=== PATIENT | female | born 1965 | race Caucasian/White ===

== ENCOUNTER 2017-03-02 06:44 | Emergency (ER) | payer MEDICAID ==
[~2017-03-02] VITALS: Ht 167.6 cm; Wt 79.2 kg
[~2017-03-02 06:44] MED LIST: ATI1T PO; DICY10CA88 PO; HYDR-3972 PO; LACT1CAP26 PO; LAMO100T89 PO; LEVO500T89 PO; LISI-600 PO; METR500T4 PO; PANT-47 PO; PHE25R PR; PRED20TA PO; PROM25TA14 PO; RANI150T12 PO; SUCR1ORA PO
[2017-03-02] MEDS ORDERED: famotidine/PF 10 mg/ml inj IV ONE (07:45)
[2017-03-02] MEDS ORDERED: LORazepam 2 mg/ml vial IV ONE (07:45)
[2017-03-02] MEDS ORDERED: proCHLORperazine 10 MG/2 ml inj IV ONE (07:45)
[2017-03-02] MEDS ORDERED: normal saline 1000ML IV soln IVB ONE ×2 (07:45)
[2017-03-02 08:29] LABS: BASOPHILS % (AUTO) 0.2 % (0-1); EOSINOPHILS % (AUTO) 0.6 % (0-6); HEMATOCRIT 46.1 % (35.0-45.0); HEMOGLOBIN 15.5 g/dl (12.0-16.0); LYMPHOCYTES # (AUTO) 0.8 X10'3 (1.1-4.8); LYMPHOCYTES % (AUTO) 19.4 % (21-51); MEAN CORPUSCULAR HEMOGLOBIN 29.3 PG (27.0-31.0); MEAN CORPUSCULAR HGB CONC 33.6 % (33.0-36.5); MEAN PLATELET VOLUME 8.8 FL (7.4-10.4); MONOCYTES # (AUTO) 0.4 X10'3 (0-0.9); MONOCYTES % (AUTO) 9.5 % (2-12); NEUTROPHILS # (AUTO) 2.8 X10'3 (1.8-7.7); NEUTROPHILS % (AUTO) 70.3 % (42-75); PLATELET COUNT 201 X10'3 (140-440); RED CELL DISTRIBUTION WIDTH 13.8 % (11.5-14.5)
[2017-03-02 08:31] LABS: ALANINE AMINOTRANSFERASE 24 U/L (12-78); ALBUMIN 4.5 G/DL (3.4-5.0); ALBUMIN/GLOBULIN RATIO 1.2 (1.1-1.5); ALKALINE PHOSPHATASE 80 IU/L (46-116); ANION GAP 14 (8-16); ASPARTATE AMINO TRANSFERASE 15 U/L (10-37); BILIRUBIN,TOTAL 0.3 MG/DL (0.1-1.0); BLOOD UREA NITROGEN 13 MG/DL (7-18); BUN/CREATININE RATIO 15.1 (6.6-38.0); CALCIUM 9.1 MG/DL (8.5-10.1); CHLORIDE 100 MMOL/L (99-107); CREATININE 0.86 MG/DL (0.40-0.90); GLUCOSE 98 MG/DL (70-104); LIPASE 67 U/L (73-393); POTASSIUM 3.8 MMOL/L (3.5-5.1); SODIUM 139 MMOL/L (135-145); TOTAL CARBON DIOXIDE 24.6 MMOL/L (24-32); TOTAL PROTEIN 8.3 G/DL (6.4-8.2); eGFR 69 ML/MIN
[2017-03-02 09:53] LABS: CLARITY,URINE Clear (Clear); COLOR,URINE Yellow (Yellow); GLUCOSE, URINE Negative (Neg); KETONES,URINE 80 mg/dl (Neg); LEUKOCYTE ESTERASE ,URINE Negative (Neg); NITRITES, URINE Negative (Neg); OCCULT BLOOD,URINE Negative (Neg); PROTEIN,URINE Negative (Neg)
[2017-03-02 09:57] LABS: UA COLLECTION TYPE CLN CATCH MIDSTREAM
[2017-03-02 11:57] VITALS: BP 124/80
== END 2017-03-02 12:10 | disposition home or self-care (01) ==
LOC: ER 06:45
DX: R11.2 Nausea with vomiting, unspecified (principal); M79.1 Myalgia; I10 Essential (primary) hypertension; J45.909 Unspecified asthma, uncomplicated; E11.9 Type 2 diabetes mellitus without complications; G89.29 Other chronic pain; Z90.710 Acquired absence of both cervix and uterus; Z88.0 Allergy status to penicillin
CPT/HCPCS: 36415; 71046; 80053; 81003; 83605; 83690; 85025; 87040; 96361; 96374; 96375; 99285; J0780; J2060; J2270; J3490; J7030

== ENCOUNTER 2017-08-19 12:21 | Emergency (ER) | payer MEDICAID ==
[~2017-08-19] VITALS: Ht 167.6 cm; Wt 89.1 kg
[~2017-08-19 12:21] MED LIST changes: -RANI150T12 PO; +RANI150T44 PO
[2017-08-19 13:07] LABS: PARTIAL THROMBOPLASTIN TIME 28 SECONDS (22-32); PROTHROMBIN TIME 10.4 SECONDS (9.0-12.0)
[2017-08-19 13:11] LABS: ALANINE AMINOTRANSFERASE 26 U/L (12-78); ALBUMIN 4.5 G/DL (3.4-5.0); ALBUMIN/GLOBULIN RATIO 1.2 (1.1-1.5); ALKALINE PHOSPHATASE 98 IU/L (46-116); ANION GAP 13 (8-16); ASPARTATE AMINO TRANSFERASE 15 U/L (10-37); BILIRUBIN,TOTAL 0.5 MG/DL (0.1-1.0); BLOOD UREA NITROGEN 16 MG/DL (7-18); BUN/CREATININE RATIO 18.2 (6.6-38.0); CALCIUM 10.1 MG/DL (8.5-10.1); CHLORIDE 99 MMOL/L (99-107); CREATININE 0.88 MG/DL (0.40-0.90); GLUCOSE 143 MG/DL (70-104); POTASSIUM 3.9 MMOL/L (3.5-5.1); SODIUM 137 MMOL/L (135-145); TOTAL CARBON DIOXIDE 24.8 MMOL/L (24-32); TOTAL PROTEIN 8.2 G/DL (6.4-8.2); eGFR 67 ML/MIN
[2017-08-19 14:00] LABS: BASOPHILS % (AUTO) 0.2 % (0-1); EOSINOPHILS % (AUTO) 0.2 % (0-6); HEMATOCRIT 42.4 % (35.0-45.0); HEMOGLOBIN 14.6 g/dl (12.0-16.0); LYMPHOCYTES # (AUTO) 2.3 X10'3 (1.1-4.8); LYMPHOCYTES % (AUTO) 20.1 % (21-51); MEAN CORPUSCULAR HEMOGLOBIN 29.2 PG (27.0-31.0); MEAN CORPUSCULAR HGB CONC 34.6 % (33.0-36.5); MEAN CORPUSCULAR VOLUME 84.5 FL (78-98); MONOCYTES # (AUTO) 0.5 X10'3 (0-0.9); MONOCYTES % (AUTO) 4.3 % (2-12); NEUTROPHILS # (AUTO) 8.7 X10'3 (1.8-7.7); NEUTROPHILS % (AUTO) 75.2 % (42-75); PLATELET COUNT 334 X10'3 (140-440); RED BLOOD COUNT 5.02 X10'6 (4.20-5.60); RED CELL DISTRIBUTION WIDTH 13.8 % (11.5-14.5); WHITE BLOOD COUNT 11.5 X10'3 (4.5-11.0)
[2017-08-19 15:27] VITALS: BP 115/63
== END 2017-08-19 15:30 | disposition home or self-care (01) ==
LOC: ER 12:22
DX: H53.50 Unspecified color vision deficiencies (principal); I10 Essential (primary) hypertension; R00.2 Palpitations; J45.909 Unspecified asthma, uncomplicated; E11.9 Type 2 diabetes mellitus without complications; M79.7 Fibromyalgia; Z90.710 Acquired absence of both cervix and uterus; Z88.0 Allergy status to penicillin; Z88.8 Allergy status to other drugs, medicaments and biological substances; Z79.899 Other long term (current) drug therapy
CPT/HCPCS: 36415; 71045; 80053; 84484; 85025; 85610; 85730; 93005; 99285

== ENCOUNTER 2017-10-24 08:43 | Emergency (ER) | payer MEDICAID ==
[~2017-10-24] VITALS: Ht 571.8 cm; Wt 86.4 kg
[2017-10-24] MEDS ORDERED: methylPREDNISolone sod succ 125mg/2ml vial IV ONE (08:50)
[2017-10-24] MEDS ORDERED: famotidine/PF 10 mg/ml inj IV ONE (08:50)
[2017-10-24] MEDS ORDERED: normal saline 1000ML IV soln IVB ONE (08:50)
[2017-10-24] MEDS ORDERED: diphenhydrAMINE 50 mg/ml inj IV ONE (08:50)
[2017-10-24] MEDS ORDERED: epiNEPHrine 1 mg/ml inj SQ STA (09:07)
[2017-10-24] MEDS ORDERED: dexamethasone sod phosphate 10mg/ml inj PO STA (09:08)
[2017-10-24 09:22] LABS: BASOPHILS # (AUTO) 0.1 X10'3 (0-0.2); BASOPHILS % (AUTO) 0.6 % (0-1); EOSINOPHILS # (AUTO) 0.2 X10'3 (0-0.9); EOSINOPHILS % (AUTO) 2.2 % (0-6); HEMATOCRIT 40.5 % (35.0-45.0); HEMOGLOBIN 13.9 g/dl (12.0-16.0); LYMPHOCYTES # (AUTO) 2.2 X10'3 (1.1-4.8); LYMPHOCYTES % (AUTO) 23.9 % (21-51); MEAN CORPUSCULAR HEMOGLOBIN 29.9 PG (27.0-31.0); MEAN CORPUSCULAR HGB CONC 34.3 % (33.0-36.5); MEAN CORPUSCULAR VOLUME 87.4 FL (78-98); MEAN PLATELET VOLUME 8.3 FL (7.4-10.4); MONOCYTES # (AUTO) 0.4 X10'3 (0-0.9); MONOCYTES % (AUTO) 4.7 % (2-12); NEUTROPHILS # (AUTO) 6.4 X10'3 (1.8-7.7); NEUTROPHILS % (AUTO) 68.6 % (42-75); PLATELET COUNT 308 X10'3 (140-440); RED BLOOD COUNT 4.64 X10'6 (4.20-5.60); RED CELL DISTRIBUTION WIDTH 13.9 % (11.5-14.5); WHITE BLOOD COUNT 9.3 X10'3 (4.5-11.0)
[2017-10-24 09:40] LABS: ALANINE AMINOTRANSFERASE 19 U/L (12-78); ALBUMIN 3.9 G/DL (3.4-5.0); ALBUMIN/GLOBULIN RATIO 1.1 (1.1-1.5); ALKALINE PHOSPHATASE 80 IU/L (46-116); ANION GAP 11 (8-16); ASPARTATE AMINO TRANSFERASE 10 U/L (10-37); BILIRUBIN,TOTAL 0.3 MG/DL (0.1-1.0); BLOOD UREA NITROGEN 14 MG/DL (7-18); BUN/CREATININE RATIO 14.3 (6.6-38.0); CALCIUM 9.2 MG/DL (8.5-10.1); CHLORIDE 101 MMOL/L (99-107); CREATININE 0.98 MG/DL (0.40-0.90); GLUCOSE 135 MG/DL (70-104); POTASSIUM 4.1 MMOL/L (3.5-5.1); SODIUM 137 MMOL/L (135-145); TOTAL PROTEIN 7.4 G/DL (6.4-8.2); eGFR 59 ML/MIN
[2017-10-24] MEDS ORDERED: HYDROcodone/acetaminophen 10/325mg tab PO ONE (09:55)
[2017-10-24] MEDS ORDERED: IBUP-1984 PO (12:01)
[2017-10-24] MEDS ORDERED: proCHLORperazine 10 MG/2 ml inj IV PRN (12:05)
[2017-10-24] MEDS ORDERED: PRED10TA PO (13:14)
[2017-10-24] MEDS ORDERED: DIPH-423 PO (13:15)
[2017-10-24 13:31] VITALS: BP 125/79
[2017-10-24] MEDS ORDERED: famotidine 10mg tablet PO SCH (20:00)
== END 2017-10-24 13:32 | disposition home or self-care (01) ==
LOC: ER 08:46
DX: T63.441A Toxic effect of venom of bees, accidental (unintentional), initial encounter (principal); R06.00 Dyspnea, unspecified; I10 Essential (primary) hypertension; E11.9 Type 2 diabetes mellitus without complications; J45.909 Unspecified asthma, uncomplicated; G89.29 Other chronic pain; Z90.710 Acquired absence of both cervix and uterus; Z88.0 Allergy status to penicillin; Z88.8 Allergy status to other drugs, medicaments and biological substances; Z79.899 Other long term (current) drug therapy; Y92.89 Other specified places as the place of occurrence of the external cause
CPT/HCPCS: 36415; 80053; 85025; 96372; 96374; 96375; 99284; J0171; J0780; J1200; J2930; J3490; J7030; J1100

== ENCOUNTER 2017-11-15 08:24 | Outpatient (CLI) | payer MEDICAID ==
[~2017-11-15 08:24] MED LIST changes: +DIPH-423 PO; +IBUP-1984 PO; +PRED10TA PO
== END 2017-11-15 23:59 | disposition home or self-care (01) ==
LOC: RAD 08:24
DX: R56.9 Unspecified convulsions (principal); J45.909 Unspecified asthma, uncomplicated; Z90.710 Acquired absence of both cervix and uterus; Z85.038 Personal history of other malignant neoplasm of large intestine; Z87.891 Personal history of nicotine dependence
CPT/HCPCS: 95819

== ENCOUNTER 2018-01-10 18:24 | Emergency (ER) | payer MEDICAID ==
[~2018-01-10] VITALS: Ht 167.6 cm; Wt 86.0 kg
[~2018-01-10 18:24] MED LIST changes: -IBUP-1984 PO; +TRAM50TA2 PO
[2018-01-10] MEDS ORDERED: proCHLORperazine 10 MG/2 ml inj IV ONE (19:15)
[2018-01-10] MEDS ORDERED: acetaminophen 325mg tablet PO ONE (19:15)
[2018-01-10] MEDS ORDERED: normal saline 1000ml 1,000 ML IV ONE (19:15)
[2018-01-10] MEDS ORDERED: normal saline 1000ML IV soln IV ONE (19:25)
[2018-01-10] MEDS ORDERED: acetaminophen 325mg rectal suppository RC ONE (19:25)
[2018-01-10] MEDS ORDERED: LORazepam 2 mg/ml vial IV ONE (19:40)
[2018-01-10 19:47] LABS: BASOPHILS % (AUTO) 0 % (0-1); EOSINOPHILS # (AUTO) 0.1 X10'3 (0-0.9); HEMATOCRIT 41.8 % (35.0-45.0); HEMOGLOBIN 13.9 g/dl (12.0-16.0); LYMPHOCYTES # (AUTO) 0.6 X10'3 (1.1-4.8); LYMPHOCYTES % (AUTO) 7.2 % (21-51); MEAN CORPUSCULAR HEMOGLOBIN 28.7 PG (27.0-31.0); MEAN CORPUSCULAR HGB CONC 33.2 % (33.0-36.5); MEAN CORPUSCULAR VOLUME 86.5 FL (78-98); MEAN PLATELET VOLUME 8.7 FL (7.4-10.4); MONOCYTES # (AUTO) 0.6 X10'3 (0-0.9); MONOCYTES % (AUTO) 6.9 % (2-12); NEUTROPHILS # (AUTO) 7.1 X10'3 (1.8-7.7); NEUTROPHILS % (AUTO) 84.9 % (42-75); PLATELET COUNT 251 X10'3 (140-440); RED BLOOD COUNT 4.83 X10'6 (4.20-5.60); WHITE BLOOD COUNT 8.4 X10'3 (4.5-11.0)
[2018-01-10 20:03] LABS: ALANINE AMINOTRANSFERASE 20 U/L (12-78); ALBUMIN 3.9 G/DL (3.4-5.0); ALBUMIN/GLOBULIN RATIO 1.1 (1.1-1.5); ALKALINE PHOSPHATASE 78 IU/L (46-116); ANION GAP 10 (8-16); ASPARTATE AMINO TRANSFERASE 18 U/L (10-37); BILIRUBIN,TOTAL 0.3 MG/DL (0.1-1.0); BLOOD UREA NITROGEN 9 MG/DL (7-18); BUN/CREATININE RATIO 10.6 (6.6-38.0); CALCIUM 8.6 MG/DL (8.5-10.1); CHLORIDE 99 MMOL/L (99-107); CREATININE 0.85 MG/DL (0.40-0.90); GLUCOSE 117 MG/DL (70-104); POTASSIUM 3.6 MMOL/L (3.5-5.1); SODIUM 135 MMOL/L (135-145); TOTAL CARBON DIOXIDE 25.7 MMOL/L (24-32); TOTAL PROTEIN 7.3 G/DL (6.4-8.2); eGFR 70 ML/MIN
[2018-01-10 20:41] LABS: PARTIAL THROMBOPLASTIN TIME 34 SECONDS (22-32); PROTHROMBIN TIME 10.6 SECONDS (9.0-12.0)
[2018-01-10] MEDS ORDERED: acetaminophen 650mg rectal suppository RC ONE (21:00)
[2018-01-10 21:36] LABS: CLARITY,URINE CLEAR (Clear); COLOR,URINE YELLOW (Yellow); GLUCOSE, URINE NEGATIVE (Neg); KETONES,URINE 15 mg/dl (Neg); LEUKOCYTE ESTERASE ,URINE NEGATIVE (Neg); NITRITES, URINE NEGATIVE (Neg); OCCULT BLOOD,URINE MODERATE (Neg); PH,URINE 5.5 (4.8-8.0); PROTEIN,URINE NEGATIVE (Neg); UROBILINOGEN,URINE 0.2 E.U/dL (0.2-1.0)
[2018-01-10 21:46] LABS: UA COLLECTION TYPE CLN CATCH MIDSTREAM
[2018-01-10 21:47] LABS: BACTERIA,URINE FEW /HPF (Neg); SQUAMOUS EPITHELIAL CELL,UR FEW /LPF (FEW); WBC,URINE NONE SEEN /HPF (0-4)
[2018-01-10] MEDS ORDERED: PHE12.5T PO (21:52)
[2018-01-10 21:59] VITALS: BP 119/47
== END 2018-01-10 22:06 | disposition home or self-care (01) ==
LOC: ER 18:25
DX: B34.9 Viral infection, unspecified (principal); R19.7 Diarrhea, unspecified; R79.1 Abnormal coagulation profile; I10 Essential (primary) hypertension; E11.9 Type 2 diabetes mellitus without complications; J45.909 Unspecified asthma, uncomplicated; G89.29 Other chronic pain; G40.909 Epilepsy, unspecified, not intractable, without status epilepticus; Z88.0 Allergy status to penicillin; Z88.8 Allergy status to other drugs, medicaments and biological substances; Z79.899 Other long term (current) drug therapy; Z87.19 Personal history of other diseases of the digestive system; Z90.710 Acquired absence of both cervix and uterus
CPT/HCPCS: 36415; 71045; 80053; 81001; 83605; 84145; 85025; 85610; 85730; 87040; 93005; 96361; 96374; 96375; 99285; J0780; J2060; J7030

== ENCOUNTER 2018-01-20 11:30 | Emergency (ER) | payer MEDICAID ==
[~2018-01-20] VITALS: Ht 167.6 cm; Wt 86.8 kg
[~2018-01-20 11:30] MED LIST changes: +PHE12.5T PO
[2018-01-20] MEDS ORDERED: TRAM50TA2 PO (13:24)
[2018-01-20 13:32] VITALS: BP 160/93
== END 2018-01-20 13:33 | disposition home or self-care (01) ==
LOC: ER 11:31
DX: S62.234D Other nondisplaced fracture of base of first metacarpal bone, right hand, subsequent encounter for fracture with routine healing (principal); I10 Essential (primary) hypertension; E11.9 Type 2 diabetes mellitus without complications; J45.909 Unspecified asthma, uncomplicated; G89.29 Other chronic pain; Z88.0 Allergy status to penicillin; Z88.8 Allergy status to other drugs, medicaments and biological substances; Z79.899 Other long term (current) drug therapy; Z87.19 Personal history of other diseases of the digestive system; X58.XXXD Exposure to other specified factors, subsequent encounter
CPT/HCPCS: 73130; 99283

== ENCOUNTER 2018-02-12 09:28 | Outpatient (CLI) | payer MEDICAID ==
[2018-02-12 09:26] VITALS: BP 149/94
[~2018-02-12 09:28] MED LIST changes: +METR-211 PO; -METR500T4 PO
== END 2018-02-12 10:42 | disposition home or self-care (01) ==
LOC: ORTHO 09:28
PROVIDERS: ATTEND Nurse Practitioner Family
DX: S62.034A Nondisplaced fracture of proximal third of navicular [scaphoid] bone of right wrist, initial encounter for closed fracture (principal); S69.91XA Unspecified injury of right wrist, hand and finger(s), initial encounter; F17.210 Nicotine dependence, cigarettes, uncomplicated; I10 Essential (primary) hypertension; J45.909 Unspecified asthma, uncomplicated; Z72.89 Other problems related to lifestyle; Z88.0 Allergy status to penicillin; Z88.8 Allergy status to other drugs, medicaments and biological substances; Z79.899 Other long term (current) drug therapy; X58.XXXA Exposure to other specified factors, initial encounter; Y93.89 Activity, other specified; Y92.89 Other specified places as the place of occurrence of the external cause; Y99.8 Other external cause status
CPT/HCPCS: 73130; 99213; A4590

== ENCOUNTER 2018-03-05 09:41 | Outpatient (CLI) | payer MEDICAID ==
[2018-03-05 09:35] VITALS: BP 144/81
[~2018-03-05 09:41] MED LIST changes: +METR-159 PO; -METR-211 PO; -TRAM50TA2 PO
== END 2018-03-05 10:28 | disposition home or self-care (01) ==
LOC: ORTHO 09:41
PROVIDERS: ATTEND Nurse Practitioner Family
DX: S62.03 Fracture of proximal third of navicular [scaphoid] bone of wrist (principal); S69.81XD Other specified injuries of right wrist, hand and finger(s), subsequent encounter; I10 Essential (primary) hypertension; J45.909 Unspecified asthma, uncomplicated; Z98.890 Other specified postprocedural states; Z88.0 Allergy status to penicillin; Z88.8 Allergy status to other drugs, medicaments and biological substances; X58.XXXD Exposure to other specified factors, subsequent encounter
CPT/HCPCS: 73110; 99213; A4590

== ENCOUNTER 2018-03-31 14:02 | Outpatient (CLI) | payer MEDICAID ==
[2018-03-31 14:06] VITALS: BP 112/69
== END 2018-03-31 14:59 | disposition home or self-care (01) ==
LOC: ORTHO 14:02
PROVIDERS: ATTEND Nurse Practitioner Family
DX: S62.03 Fracture of proximal third of navicular [scaphoid] bone of wrist (principal); I10 Essential (primary) hypertension; J45.909 Unspecified asthma, uncomplicated; Z98.890 Other specified postprocedural states; Z88.0 Allergy status to penicillin; Z88.8 Allergy status to other drugs, medicaments and biological substances; X58.XXXD Exposure to other specified factors, subsequent encounter
CPT/HCPCS: 73110

== ENCOUNTER 2018-05-01 11:23 | Outpatient (CLI) | payer MEDICAID ==
[2018-05-01 11:23] VITALS: BP 116/74
== END 2018-05-01 11:59 | disposition home or self-care (01) ==
LOC: ORTHO 11:23
PROVIDERS: ATTEND Nurse Practitioner Family
DX: S69.91XD Unspecified injury of right wrist, hand and finger(s), subsequent encounter (principal); S62.001G Unspecified fracture of navicular [scaphoid] bone of right wrist, subsequent encounter for fracture with delayed healing; I10 Essential (primary) hypertension; J45.909 Unspecified asthma, uncomplicated; Z98.890 Other specified postprocedural states; Z88.0 Allergy status to penicillin; Z88.8 Allergy status to other drugs, medicaments and biological substances; X58.XXXD Exposure to other specified factors, subsequent encounter
CPT/HCPCS: 99213

== ENCOUNTER 2018-05-07 14:37 | Outpatient (CLI) | payer MEDICAID ==
[2018-05-07 14:33] VITALS: BP 116/78
== END 2018-05-07 14:38 | disposition home or self-care (01) ==
LOC: ORTHO 14:37
PROVIDERS: ATTEND Nurse Practitioner Family
DX: S69.81XD Other specified injuries of right wrist, hand and finger(s), subsequent encounter (principal); I10 Essential (primary) hypertension; J45.909 Unspecified asthma, uncomplicated; Z90.710 Acquired absence of both cervix and uterus; Z98.890 Other specified postprocedural states; Z88.0 Allergy status to penicillin; Z87.891 Personal history of nicotine dependence; Z72.89 Other problems related to lifestyle; X58.XXXD Exposure to other specified factors, subsequent encounter
CPT/HCPCS: 99213; A4590

== ENCOUNTER 2018-05-08 11:11 | Outpatient (CLI) | payer MEDICAID ==
[2018-05-08 11:43] VITALS: BP 126/91
== END 2018-05-08 11:46 | disposition home or self-care (01) ==
LOC: ORTHO 11:11
PROVIDERS: ATTEND Nurse Practitioner Family
DX: S69.81XD Other specified injuries of right wrist, hand and finger(s), subsequent encounter (principal); I10 Essential (primary) hypertension; J45.909 Unspecified asthma, uncomplicated; G40.89 Other seizures; Z88.0 Allergy status to penicillin; Z88.8 Allergy status to other drugs, medicaments and biological substances; X58.XXXD Exposure to other specified factors, subsequent encounter
CPT/HCPCS: 99213

== ENCOUNTER 2019-01-18 10:00 | Emergency (ER) | payer MEDICAID ==
[~2019-01-18] VITALS: Ht 165.1 cm; Wt 90.0 kg
[~2019-01-18 10:00] MED LIST changes: +LAMO100T PO; -LAMO100T89 PO; -PHE12.5T PO; +PROM12.512 PO; +RANI-648 PO; -RANI150T44 PO
[2019-01-18 10:03] VITALS: BP 159/67
[2019-01-18] MEDS ORDERED: proparacaine 0.5% ophthalmic drops 15ml EACHEYE ONE (10:35)
[2019-01-18] MEDS ORDERED: ERYT1OIN6 EACHEYE (11:19)
[2019-01-18] MEDS ORDERED: erythromycin ophthalmic ointment 1gm tube EACHEYE ONE (11:20)
== END 2019-01-18 11:46 | disposition home or self-care (01) ==
LOC: ER 10:00
DX: T59.891A Toxic effect of other specified gases, fumes and vapors, accidental (unintentional), initial encounter (principal); T26.91XA Corrosion of right eye and adnexa, part unspecified, initial encounter; T26.92XA Corrosion of left eye and adnexa, part unspecified, initial encounter; H40.053 Ocular hypertension, bilateral; H40.9 Unspecified glaucoma; I10 Essential (primary) hypertension; J45.909 Unspecified asthma, uncomplicated; E11.9 Type 2 diabetes mellitus without complications; G89.29 Other chronic pain; M79.7 Fibromyalgia; Z90.710 Acquired absence of both cervix and uterus; Z98.890 Other specified postprocedural states; Z88.0 Allergy status to penicillin; Z88.8 Allergy status to other drugs, medicaments and biological substances; Z79.899 Other long term (current) drug therapy; W40.8XXA Explosion of other specified explosive materials, initial encounter; Y93.89 Activity, other specified; Y92.89 Other specified places as the place of occurrence of the external cause; Y99.8 Other external cause status
CPT/HCPCS: 99284

== ENCOUNTER 2019-08-14 12:23 | Emergency (ER) | payer MEDICAID ==
[~2019-08-14] VITALS: Ht 165.1 cm; Wt 84.5 kg
[~2019-08-14 12:23] MED LIST changes: -SUCR1ORA PO; +SUCR1ORA15 PO
[2019-08-14] MEDS ORDERED: triamcinolone acetonide 40mg/ml inj IM ONE (13:25)
[2019-08-14 13:44] VITALS: BP 126/84
== END 2019-08-14 13:50 | disposition home or self-care (01) ==
LOC: ER 12:24
DX: T63.441A Toxic effect of venom of bees, accidental (unintentional), initial encounter (principal); I10 Essential (primary) hypertension; J45.909 Unspecified asthma, uncomplicated; E11.9 Type 2 diabetes mellitus without complications; G89.29 Other chronic pain; M79.7 Fibromyalgia; Z90.710 Acquired absence of both cervix and uterus; Z86.69 Personal history of other diseases of the nervous system and sense organs; Z98.890 Other specified postprocedural states; Z88.0 Allergy status to penicillin; Z88.1 Allergy status to other antibiotic agents; Z88.5 Allergy status to narcotic agent; Z79.899 Other long term (current) drug therapy; Y92.89 Other specified places as the place of occurrence of the external cause
CPT/HCPCS: 93005; 96372; 99283; J3301

== ENCOUNTER 2019-10-08 12:50 | Emergency (ER) | payer MEDICAID ==
[~2019-10-08] VITALS: Ht 167.6 cm; Wt 77.7 kg
[2019-10-08 12:59] VITALS: BP 136/87
[2019-10-08] MEDS ORDERED: CLIN300C70 PO (15:33)
== END 2019-10-08 15:53 | disposition home or self-care (01) ==
LOC: ER 12:50
DX: K04.7 Periapical abscess without sinus (principal); R50.9 Fever, unspecified; R11.0 Nausea; L03.211 Cellulitis of face; I10 Essential (primary) hypertension; J45.909 Unspecified asthma, uncomplicated; E11.9 Type 2 diabetes mellitus without complications; G89.29 Other chronic pain; Z86.69 Personal history of other diseases of the nervous system and sense organs; Z90.710 Acquired absence of both cervix and uterus; Z98.890 Other specified postprocedural states; Z88.0 Allergy status to penicillin; Z88.1 Allergy status to other antibiotic agents; Z88.8 Allergy status to other drugs, medicaments and biological substances; Z79.2 Long term (current) use of antibiotics; Z79.899 Other long term (current) drug therapy
CPT/HCPCS: 99283

== ENCOUNTER 2019-10-27 11:05 | Inpatient (IN) | payer MEDICAID ==
[~2019-10-27] VITALS: Ht 167.6 cm; Wt 76.8 kg
[2019-10-27 11:38] LABS: BASOPHILS # (AUTO) 0.1 X10'3 (0-0.2); BASOPHILS % (AUTO) 1.3 % (0-1); EOSINOPHILS # (AUTO) 0.1 X10'3 (0-0.9); EOSINOPHILS % (AUTO) 1.4 % (0-6); HEMATOCRIT 44.9 % (35.0-45.0); HEMOGLOBIN 14.9 g/dl (12.0-16.0); LYMPHOCYTES # (AUTO) 2.7 X10'3 (1.1-4.8); LYMPHOCYTES % (AUTO) 31.3 % (21-51); MEAN CORPUSCULAR HEMOGLOBIN 29.2 PG (27.0-31.0); MEAN CORPUSCULAR HGB CONC 33.2 g/dL (33.0-36.5); MEAN PLATELET VOLUME 9.4 FL (7.4-10.4); MONOCYTES # (AUTO) 0.5 X10'3 (0-0.9); MONOCYTES % (AUTO) 5.8 % (2-12); NEUTROPHILS # (AUTO) 5.1 X10'3 (1.8-7.7); NEUTROPHILS % (AUTO) 60.2 % (42-75); PLATELET COUNT 277 X10'3 (140-440); RED CELL DISTRIBUTION WIDTH 14.2 % (11.5-14.5); WHITE BLOOD COUNT 8.5 X10'3 (4.5-11.0)
[2019-10-27 11:55] LABS: ALANINE AMINOTRANSFERASE 18 U/L (12-78); ALBUMIN 4.2 G/DL (3.4-5.0); ALBUMIN/GLOBULIN RATIO 1.3 (1.1-1.5); ALKALINE PHOSPHATASE 71 IU/L (46-116); ANION GAP 7 (8-16); ASPARTATE AMINO TRANSFERASE 13 U/L (10-37); BILIRUBIN,TOTAL 0.3 MG/DL (0.1-1.0); BLOOD UREA NITROGEN 10 MG/DL (7-18); BUN/CREATININE RATIO 10.9 (6.6-38.0); CALCIUM 9.5 MG/DL (8.5-10.1); CHLORIDE 105 MMOL/L (99-107); CREATININE 0.92 MG/DL (0.40-0.90); GLUCOSE 129 MG/DL (70-104); SODIUM 140 MMOL/L (135-145); TOTAL CARBON DIOXIDE 27.7 MMOL/L (24-32); TOTAL PROTEIN 7.4 G/DL (6.4-8.2); eGFR 63 ML/MIN
--- NOTE | 2019-10-27 13:44 | NUR ---
Checked with patient who states chest pressure present 09/03 with radiation to right clavicle. Patient also states she is cold all of a sudden and is not able to take a large breath.
--- NOTE | 2019-10-27 13:51 | NUR ---
Report of new chest pain given to Dr. Saucedo. EKG ordered.
[2019-10-27] MEDS ORDERED: aspirin 81mg tab.chew PO ONE (13:55)
[2019-10-27] MEDS: nitroGLYCERIN 0.4mg SUBLingual tab SL PRN ×2 (14:03→17:23)
--- NOTE | 2019-10-27 14:04 | NUR ---
Patient given one dose of Nitro 0.4 mg vitals taken.
[2019-10-27] MEDS ORDERED: SIMV20TA PO (14:11)
[2019-10-27] MEDS ORDERED: TIMO5DRO32 LEFTEYE (14:11)
[2019-10-27] MEDS ORDERED: NETA2.5D3 EACHEYE (14:11)
[2019-10-27] MEDS ORDERED: PROM25TA14 PO (14:11)
[2019-10-27] MEDS ORDERED: LISI-600 PO (14:11)
[2019-10-27] MEDS ORDERED: OMEP-50 PO (14:11)
[2019-10-27] MEDS ORDERED: TRAZ-251 PO (14:11)
[2019-10-27] MEDS ORDERED: DORZ10DR2 RIGHTEYE (14:11)
[2019-10-27] MEDS ORDERED: LAMO100T65 PO (14:11)
[2019-10-27] MEDS ORDERED: LAMO200T10 PO (14:12)
--- NOTE | 2019-10-27 14:14 | NUR ---
Patient recieved second dose of Nitro 0.4 mg. Patient vitals 77 pulse, 95 % SpO2, 24 respirations, bp 126/81. Patinet is A&Ox4, pink warm and dry, good vitals, talking normally, states painis 5/10 chest pressure, non radiating.
--- NOTE | 2019-10-27 14:20 | NUR ---
Patient recieved third dose of Nitro 0.4 mg and states relief from chest tightness, visibly more relaxed, easier breathing. Vitals stabel, pink warm and dry, A&x4. chest pressure is 3/10 with no sob or radiating.
--- NOTE | 2019-10-27 14:25 | NUR ---
Note brody in ED - 10/27/19 at 1508 by SIMON Patient recieved third dose of Nitro 0.4mg states chest pressure is 2/10 with slight restriction with breathing. Patient is pink warm and dry with no obvious signs of distress.
[2019-10-27] MEDS ORDERED: proMETHazine 25mg tablet PO PRN (14:45)
[2019-10-27] MEDS ORDERED: aminophylline 250mg/10ml inj. IV PRN (14:50)
[2019-10-27] MEDS ORDERED: HYDROcodone/acetaminophen 10/325mg tab PO PRN (14:50)
[2019-10-27] MEDS ORDERED: bisacodyl 10mg suppository rectal RC PRN (14:50)
[2019-10-27] MEDS ORDERED: magnesium hydroxide 30ml (MOM) UD suspension PO PRN (14:50)
[2019-10-27] MEDS ORDERED: regadenoson 0.4mg/5ml syringe IV PRN (14:50)
[2019-10-27] MEDS ORDERED: diphenhydrAMINE 25mg capsule PO PRN (14:50)
[2019-10-27] MEDS ORDERED: metoprolol tartrate 1mg/ml inj IV PRN (14:50)
[2019-10-27] MEDS ORDERED: acetaminophen 325mg tablet PO PRN ×2 (14:50)
[2019-10-27] MEDS ORDERED: potassium CL 10mEq/100ml bag 100 ML IV PRN ×2 (14:50)
[2019-10-27] MEDS ORDERED: magnesium 2GM in 50ml NS 50 ML IV PRN (14:50)
[2019-10-27] MEDS ORDERED: HYDROcodone/acetaminophen 5mg/325mg tablet PO PRN (14:50)
[2019-10-27] MEDS ORDERED: magnesium 4gm in 100ml NS 100 ML IV PRN (14:50)
[2019-10-27] MEDS ORDERED: mag hydrox/Alum hydrox/simeth 30ml oral suspension PO PRN (14:50)
[2019-10-27] MEDS ORDERED: magnesium Cl slow-release 64mg tablet PO PRN (14:50)
[2019-10-27] MEDS ORDERED: nitroGLYCERIN 0.4mg SUBLingual tab SL PRN (14:50)
[2019-10-27] MEDS ORDERED: morphine 2 MG/ML inj. syringe IV PRN ×2 (14:50)
[2019-10-27] MEDS ORDERED: potassium Cl 20 mEq SR tablet PO PRN ×2 (14:50)
[2019-10-27] MEDS ORDERED: acetaminophen 650mg rectal suppository RC PRN (14:50)
[2019-10-27] MEDS ORDERED: ondansetron/PF 4mg/2ml inj IV PRN (14:50)
[2019-10-27 15:04] LABS: CLARITY,URINE SLIGHTLY CLOUDY (Clear); COLOR,URINE YELLOW (Yellow); GLUCOSE, URINE NEGATIVE (Neg); KETONES,URINE NEGATIVE (Neg); LEUKOCYTE ESTERASE ,URINE NEGATIVE (Neg); NITRITES, URINE NEGATIVE (Neg); OCCULT BLOOD,URINE TRACE-INTACT (Neg); PH,URINE 5.5 (4.8-8.0); PROTEIN,URINE NEGATIVE (Neg); UROBILINOGEN,URINE 0.2 E.U/dL (0.2-1.0)
[2019-10-27 15:05] LABS: UA COLLECTION TYPE CLN CATCH MIDSTREAM
--- NOTE | 2019-10-27 15:08 | NUR ---
Patient states pain in chest has increased to 5/10 with some shortness of breath. One dose of 0.4mg Nitro given to patient with stable vitals, A&Ox4, pink warm and dry.
[2019-10-27] MEDS: normal saline 1000ml 1,000 ML IV SCH (15:13)
[2019-10-27 15:15] LABS: SQUAMOUS EPITHELIAL CELL,UR FEW /LPF (FEW)
--- NOTE | 2019-10-27 15:15 | NUR ---
After Nitro vitals stable, patient pink warm and dry A&Ox4
[2019-10-27 15:16] LABS: BACTERIA,URINE 1+ /HPF (Neg); RBC,URINE 0-2 /HPF (0-2); WBC,URINE 0-4 /HPF (0-4)
[2019-10-27 17:09] LABS: HEMOGLOBIN A1C 6.1 % (4.5-6.2)
--- NOTE | 2019-10-27 17:29 | NUR ---
report given to Marina RODRIGEZ
--- NOTE | 2019-10-27 17:40 | NUR ---
Patient recieved 2 doses of Nitro 0.4mg with relief from chest pain from 6 down to 1 in pain and relief from SOB. Patient is pink warm and dry, A&Ox4, in no obvious distress.
[2019-10-27 18:00] VITALS: BP 118/69
--- NOTE | 2019-10-27 18:00 | NUR ---
Patient in room MED 314. I have received report from Nanette RN and had the opportunity to ask questions and assume patient care.
[2019-10-27] MEDS: dorzolamide 2% ophthalmic drops 10ml RIGHTEYE SCH (20:00)
[2019-10-27] MEDS: K and/or MAG REPLACEMENT MC SCH (20:00)
[2019-10-27] MEDS ORDERED: traZODone 50mg tablet PO SCH (21:00)
[2019-10-27] MEDS ORDERED: EYE DRP EACHEYE SCH (21:00)
[2019-10-27] MEDS ORDERED: atorvastatin 10mg tablet PO SCH (21:00)
[2019-10-27] MEDS ORDERED: ROCKLATAN EACHEYE SCH (21:00)
[2019-10-27] MEDS: lamoTRIgine 100mg tablet PO SCH (21:50)
[2019-10-27] MEDS: timolol 0.5% ophthalmic solution 5ml bottle LEFTEYE SCH (21:51)
[2019-10-27] MEDS: heparin, porcine 5000 units/ml vial SQ SCH (21:54)
[2019-10-27 22:00] VITALS: BP_SYST 138; BP_SYST 140; BP_DIAS 82; BP_DIAS 84
[2019-10-28] VITALS (19 sets, daily range): BP systolic 120–196; BP diastolic 72–122
[2019-10-28] MEDS: normal saline 1000ml 1,000 ML IV SCH (04:08)
[2019-10-28 06:00] LABS: ALANINE AMINOTRANSFERASE 16 U/L (12-78); ALBUMIN 3.2 G/DL (3.4-5.0); ALBUMIN/GLOBULIN RATIO 1.1 (1.1-1.5); ALKALINE PHOSPHATASE 53 IU/L (46-116); ANION GAP 8 (8-16); ASPARTATE AMINO TRANSFERASE 11 U/L (10-37); BILIRUBIN,TOTAL 0.4 MG/DL (0.1-1.0); BLOOD UREA NITROGEN 10 MG/DL (7-18); BUN/CREATININE RATIO 13.3 (6.6-38.0); CALCIUM 8.7 MG/DL (8.5-10.1); CHLORIDE 110 MMOL/L (99-107); CHOL/HDL RATIO 2.8 (0.00-4.99); CHOLESTEROL 135 MG/DL (0-200); CREATININE 0.75 MG/DL (0.40-0.90); GLUCOSE 93 MG/DL (70-104); HDL CHOLESTEROL 49 MG/DL (35-60); LDL CHOLESTEROL 69 MG/DL (50-100); MAGNESIUM 1.9 MG/DL (1.5-2.4); PHOSPHORUS 3.9 MG/DL (2.3-4.5); POTASSIUM 4.1 MMOL/L (3.5-5.1); SODIUM 144 MMOL/L (135-145); TOTAL CARBON DIOXIDE 25.7 MMOL/L (24-32); TRIGLYCERIDES 81 MG/DL (20-135); eGFR 80 ML/MIN
--- NOTE | 2019-10-28 06:00 | NUR ---
Patient in room MED 314. I have received report from Ivette RN & Devon RN and had the opportunity to ask questions and assume patient care.
[2019-10-28 06:07] LABS: BASOPHILS # (AUTO) 0.1 X10'3 (0-0.2); BASOPHILS % (AUTO) 0.9 % (0-1); EOSINOPHILS # (AUTO) 0.1 X10'3 (0-0.9); EOSINOPHILS % (AUTO) 1.9 % (0-6); HEMATOCRIT 40.8 % (35.0-45.0); HEMOGLOBIN 13.3 g/dl (12.0-16.0); LYMPHOCYTES # (AUTO) 2.3 X10'3 (1.1-4.8); LYMPHOCYTES % (AUTO) 37.6 % (21-51); MEAN CORPUSCULAR HEMOGLOBIN 28.6 PG (27.0-31.0); MEAN CORPUSCULAR HGB CONC 32.7 g/dL (33.0-36.5); MEAN CORPUSCULAR VOLUME 87.6 FL (78-98); MONOCYTES # (AUTO) 0.4 X10'3 (0-0.9); MONOCYTES % (AUTO) 5.7 % (2-12); NEUTROPHILS # (AUTO) 3.3 X10'3 (1.8-7.7); NEUTROPHILS % (AUTO) 53.9 % (42-75); PLATELET COUNT 246 X10'3 (140-440); RED BLOOD COUNT 4.66 X10'6 (4.20-5.60); RED CELL DISTRIBUTION WIDTH 14.7 % (11.5-14.5); WHITE BLOOD COUNT 6.2 X10'3 (4.5-11.0)
--- NOTE | 2019-10-28 06:19 | NUR ---
Problems reprioritized. Patient report given, questions answered & plan of care reviewed with LIZZETH RODRIGEZ.
--- NOTE | 2019-10-28 06:19 | NUR ---
Orientee documentation: I have reviewed and agree with all interventions, assessments performed and documented by Ivette RODRIGEZ .
[2019-10-28] MEDS ORDERED: pantoprazole 40mg Tablet.DR PO PRN (07:30)
[2019-10-28] MEDS: K and/or MAG REPLACEMENT MC SCH (08:00)
[2019-10-28] MEDS ORDERED: lisinopril 20mg tablet PO SCH (08:00)
[2019-10-28] MEDS: timolol 0.5% ophthalmic solution 5ml bottle LEFTEYE SCH (08:04)
[2019-10-28] MEDS: lamoTRIgine 100mg tablet PO SCH (08:05)
[2019-10-28] MEDS: dorzolamide 2% ophthalmic drops 10ml RIGHTEYE SCH (08:05)
[2019-10-28] MEDS: heparin, porcine 5000 units/ml vial SQ SCH (08:08)
--- NOTE | 2019-10-28 14:44 | NUR ---
PAGER ID: [phone] MESSAGE: [phone] - FYI FUNMI RESULTED. THANKS! LIZZETH VALENCIAE [id number]
[2019-10-28] MEDS ORDERED: ASPI-611 PO (15:18)
--- NOTE | 2019-10-28 16:42 | NUR ---
Patient stable for discharge per MD orders. Rx e-transmitted to [facility] on . All discharge instructions reviewed and understood, all questions answered. PIV discontinued, cannula intact. Clean, dry dressing in place. Bedside buzzle buffer discontinued. All personal belongings collected and sent with patient. RN wheeled patient to private vehicle at 1641 to be transported home by family.
== END 2019-10-28 16:40 | disposition home or self-care (01) | DRG 198 ==
LOC: ER 11:06 → ED HOLD 14:48 → MED 3N 17:58
PROVIDERS: ADMIT Family Medicine; ATTEND Family Medicine
PROC: 4A02XM4 Measurement of Cardiac Total Activity, External Approach (ICD-10-PCS; principal; 2019-10-28)
PROC: 3E033HZ Introduction of Radioactive Substance into Peripheral Vein, Percutaneous Approach (ICD-10-PCS; 2019-10-28)
DX: I24.9 Acute ischemic heart disease, unspecified (principal); E11.9 Type 2 diabetes mellitus without complications; E78.00 Pure hypercholesterolemia, unspecified; F43.10 Post-traumatic stress disorder, unspecified; G40.909 Epilepsy, unspecified, not intractable, without status epilepticus; G47.00 Insomnia, unspecified; H40.9 Unspecified glaucoma; H54.8 Legal blindness, as defined in USA; I10 Essential (primary) hypertension; I48.0 Paroxysmal atrial fibrillation; J45.909 Unspecified asthma, uncomplicated; M85.80 Other specified disorders of bone density and structure, unspecified site; K21.9 Gastro-esophageal reflux disease without esophagitis; K50.90 Crohn's disease, unspecified, without complications; G89.29 Other chronic pain; Z86.73 Personal history of transient ischemic attack (TIA), and cerebral infarction without residual deficits; Z83.3 Family history of diabetes mellitus; Z87.19 Personal history of other diseases of the digestive system; Z87.891 Personal history of nicotine dependence; Z88.8 Allergy status to other drugs, medicaments and biological substances; Z90.710 Acquired absence of both cervix and uterus; Z98.1 Arthrodesis status; Z82.49 Family history of ischemic heart disease and other diseases of the circulatory system; Z80.0 Family history of malignant neoplasm of digestive organs; Z79.899 Other long term (current) drug therapy
CPT/HCPCS: 36415; 71045; 78452; 80053; 80061; 81001; 83036; 83735; 83880; 84100; 84484; 85025; 87081; 93005; 93017; 93306; 99285; A9500; G0378; J1644; J2270; J2785; J3490; J7030; Q0169

== ENCOUNTER 2020-08-04 12:32 | Outpatient (CLI) | payer MEDICAID ==
[~2020-08-04 12:32] MED LIST changes: -ATI1T PO; -DICY10CA88 PO; -DIPH-423 PO; +DORZ10DR2 RIGHTEYE; -HYDR-3972 PO; -LACT1CAP26 PO; -LAMO100T PO; +LAMO200T10 PO; -LEVO500T89 PO; -LISI-600 PO; +LISI20TA28 PO; -METR-159 PO; +NETA2.5D3 EACHEYE; +OMEP-50 PO; -PANT-47 PO; -PHE25R PR; -PRED10TA PO; -PRED20TA PO; -PROM12.512 PO; -RANI-648 PO; +SIMV20TA PO; -SUCR1ORA15 PO; +TIMO5DRO32 LEFTEYE; +TRAZ-251 PO
== END 2020-08-04 23:59 | disposition home or self-care (01) ==
LOC: CARD DIAG 12:32
DX: I08.0 Rheumatic disorders of both mitral and aortic valves (principal); I48.91 Unspecified atrial fibrillation
CPT/HCPCS: 93306

== ENCOUNTER 2022-06-04 13:04 | Emergency (ER) | payer MEDICAID ==
[~2022-06-04] VITALS: Ht 167.6 cm; Wt 89.5 kg
[~2022-06-04 13:04] MED LIST changes: -DORZ10DR2 RIGHTEYE; +DORZ10DR26 RIGHTEYE; -OMEP-50 PO; +OMEP20CA16 PO; +SIMV-342 PO; -SIMV20TA PO; -TIMO5DRO32 LEFTEYE; +TIMO5DRO44 LEFTEYE
[2022-06-04 13:23] VITALS: BP 159/69
[2022-06-04] MEDS ORDERED: HYDROcodone/acetaminophen 10/325mg tab PO ONE (20:55)
[2022-06-04] MEDS ORDERED: proCHLORperazine 10mg tablet PO ONE (20:55)
[2022-06-04 21:41] LABS: BASOPHILS # (AUTO) 0.1 X10'3 (0-0.2); BASOPHILS % (AUTO) 0.7 % (0-1); EOSINOPHILS % (AUTO) 0.3 % (0-6); HEMATOCRIT 45.6 % (35.0-45.0); LYMPHOCYTES # (AUTO) 3.5 X10'3 (1.1-4.8); LYMPHOCYTES % (AUTO) 24.2 % (21-51); MEAN CORPUSCULAR HEMOGLOBIN 28.7 PG (27.0-31.0); MEAN CORPUSCULAR VOLUME 87.1 FL (78-98); MEAN PLATELET VOLUME 9.1 FL (7.4-10.4); MONOCYTES # (AUTO) 0.8 X10'3 (0-0.9); MONOCYTES % (AUTO) 5.7 % (2-12); NEUTROPHILS # (AUTO) 9.8 X10'3 (1.8-7.7); NEUTROPHILS % (AUTO) 69.1 % (42-75); PLATELET COUNT 352 X10'3 (140-440); RED BLOOD COUNT 5.24 X10'6 (4.20-5.60); RED CELL DISTRIBUTION WIDTH 13.5 % (11.5-14.5); WHITE BLOOD COUNT 14.2 X10'3 (4.5-11.0)
[2022-06-04 21:45] LABS: APTT 32 SECONDS (22-32)
[2022-06-04 21:57] LABS: ALANINE AMINOTRANSFERASE 20 U/L (12-78); ALBUMIN 4.5 G/DL (3.4-5.0); ALBUMIN/GLOBULIN RATIO 1.3 (1.1-1.5); ALKALINE PHOSPHATASE 77 IU/L (46-116); ANION GAP 15 (8-16); ASPARTATE AMINO TRANSFERASE 12 U/L (10-37); BILIRUBIN,TOTAL 0.2 MG/DL (0.1-1.0); BLOOD UREA NITROGEN 22 MG/DL (7-18); BUN/CREATININE RATIO 26.8 (10.0-20.0); CALCIUM 9.8 MG/DL (8.5-10.1); CHLORIDE 104 MMOL/L (99-107); CREATININE 0.82 MG/DL (0.40-0.90); GLUCOSE 118 MG/DL (70-104); POTASSIUM 4.1 MMOL/L (3.5-5.1); SODIUM 142 MMOL/L (135-145); TOTAL CARBON DIOXIDE 23.3 MMOL/L (24-32); eGFR 71 ML/MIN
[2022-06-04 22:03] LABS: D-DIMER < 0.19 MG/L FEU (0-0.50)
[2022-06-04] MEDS ORDERED: SULF1TAB49 PO (22:50)
[2022-06-04] MEDS ORDERED: sulfamethoxazole/trimethoprim DS (800/160mg) tablet PO ONE (22:55)
== END 2022-06-04 23:11 | disposition home or self-care (01) ==
LOC: ER 13:04
DX: I80.01 Phlebitis and thrombophlebitis of superficial vessels of right lower extremity (principal); R00.2 Palpitations; I10 Essential (primary) hypertension; E78.00 Pure hypercholesterolemia, unspecified; J45.909 Unspecified asthma, uncomplicated; E11.9 Type 2 diabetes mellitus without complications; G89.29 Other chronic pain; M54.50 Low back pain, unspecified; Z88.0 Allergy status to penicillin; Z88.1 Allergy status to other antibiotic agents; Z88.8 Allergy status to other drugs, medicaments and biological substances; Z90.710 Acquired absence of both cervix and uterus
CPT/HCPCS: 36415; 71045; 80053; 83880; 84484; 85025; 85379; 85610; 85730; 93005; 99285; Q0164

== ENCOUNTER 2022-06-10 13:01 | Emergency (ER) | payer MEDICAID ==
[~2022-06-10] VITALS: Ht 165.1 cm; Wt 90.0 kg
[~2022-06-10 13:01] MED LIST changes: +SULF1TAB49 PO
[2022-06-10 13:03] VITALS: BP 178/80
--- NOTE | 2022-06-10 14:18 | NUR ---
I AGREE WITH THE ASSESSMENT PER Nini PADRON LVN.
== END 2022-06-10 15:22 | disposition home or self-care (01) ==
LOC: ER 13:02
DX: M79.601 Pain in right arm (principal); I11.9 Hypertensive heart disease without heart failure; J45.909 Unspecified asthma, uncomplicated; E11.9 Type 2 diabetes mellitus without complications; G89.29 Other chronic pain; M54.9 Dorsalgia, unspecified; Z90.49 Acquired absence of other specified parts of digestive tract; Z88.0 Allergy status to penicillin; Z88.1 Allergy status to other antibiotic agents; Z88.8 Allergy status to other drugs, medicaments and biological substances; Z79.899 Other long term (current) drug therapy; Z79.1 Long term (current) use of non-steroidal anti-inflammatories (NSAID); Z79.2 Long term (current) use of antibiotics
CPT/HCPCS: 93971; 99284

== ENCOUNTER 2022-07-30 14:20 | Emergency (ER) | payer MEDICAID ==
[~2022-07-30] VITALS: Ht 167.6 cm; Wt 89.5 kg
[~2022-07-30 14:20] MED LIST changes: -SULF1TAB49 PO
[2022-07-30 14:52] LABS: EOSINOPHILS # (AUTO) 0.1 X10'3 (0-0.9); HEMOGLOBIN 14.9 g/dl (12.0-16.0); LYMPHOCYTES % (AUTO) 27.6 % (21-51); MEAN CORPUSCULAR HGB CONC 33.5 g/dL (33.0-36.5)
[2022-07-30 14:54] LABS: BASOPHILS # (AUTO) 0.2 X10'3 (0-0.2); BASOPHILS % (AUTO) 1.5 % (0-1); EOSINOPHILS % (AUTO) 0.8 % (0-6); HEMATOCRIT 44.4 % (35.0-45.0); MEAN CORPUSCULAR HEMOGLOBIN 29.8 PG (27.0-31.0); MEAN CORPUSCULAR VOLUME 88.9 FL (78-98); MEAN PLATELET VOLUME 9.2 FL (7.4-10.4); MONOCYTES # (AUTO) 0.6 X10'3 (0-0.9); MONOCYTES % (AUTO) 5.9 % (2-12); NEUTROPHILS # (AUTO) 6.9 X10'3 (1.8-7.7); NEUTROPHILS % (AUTO) 64.2 % (42-75); PLATELET COUNT 323 X10'3 (140-440); RED CELL DISTRIBUTION WIDTH 13.6 % (11.5-14.5); WHITE BLOOD COUNT 10.7 X10'3 (4.5-11.0)
[2022-07-30 14:59] LABS: URINE HCG NEGATIVE (NEG)
[2022-07-30 15:07] LABS: ALANINE AMINOTRANSFERASE 19 U/L (12-78); ALBUMIN 4.5 G/DL (3.4-5.0); ALBUMIN/GLOBULIN RATIO 1.3 (1.1-1.5); ALKALINE PHOSPHATASE 83 IU/L (46-116); ANION GAP 6 (8-16); ASPARTATE AMINO TRANSFERASE 18 U/L (10-37); BILIRUBIN,TOTAL 0.3 MG/DL (0.1-1.0); BLOOD UREA NITROGEN 10 MG/DL (7-18); BUN/CREATININE RATIO 10.2 (10.0-20.0); CALCIUM 9.5 MG/DL (8.5-10.1); CHLORIDE 104 MMOL/L (99-107); CREATININE 0.98 MG/DL (0.40-0.90); GLUCOSE 117 MG/DL (70-104); LIPASE 70 U/L (73-393); SODIUM 138 MMOL/L (135-145); TOTAL CARBON DIOXIDE 28.4 MMOL/L (24-32); eGFR 58 ML/MIN
[2022-07-30 15:19] LABS: POTASSIUM 4.2 MMOL/L (3.5-5.1)
[2022-07-30] MEDS ORDERED: morphine 4 MG/ML inj SYRINge IM ONE (18:25)
[2022-07-30] MEDS ORDERED: proCHLORperazine 10 MG/2 ml inj IV ONE (18:25)
[2022-07-30] MEDS ORDERED: pantoprazole 40 MG vial IV ONE (18:25)
[2022-07-30] MEDS ORDERED: pantoprazole 40 MG/NS 100ML add-vantage BAG IV ONE (18:30)
[2022-07-30] MEDS ORDERED: morphine 2 MG/ML inj. syringe IV ONE (19:35)
[2022-07-30 20:16] LABS: COLOR,URINE YELLOW (Yellow); GLUCOSE, URINE NEGATIVE (Neg); KETONES,URINE NEGATIVE (Neg); LEUKOCYTE ESTERASE ,URINE NEGATIVE (Neg); NITRITES, URINE NEGATIVE (Neg); OCCULT BLOOD,URINE SMALL (Neg); PROTEIN,URINE NEGATIVE (Neg); UROBILINOGEN,URINE 0.2 E.U/dL (0.2-1.0)
[2022-07-30 20:27] LABS: UA COLLECTION TYPE CLN CATCH MIDSTREAM
[2022-07-30 20:28] LABS: CLARITY,URINE SLIGHTLY CLOUDY (Clear)
[2022-07-30 20:30] LABS: BACTERIA,URINE FEW /HPF (Neg); MUCUS STRANDS FEW /LPF (Neg); SQUAMOUS EPITHELIAL CELL,UR FEW /LPF (FEW); WBC,URINE 0-4 /HPF (0-4)
[2022-07-30 20:47] VITALS: BP 147/85
[2022-07-30] MEDS ORDERED: PANT-47 PO (21:30)
[2022-07-30] MEDS ORDERED: PROC-8 PO (21:31)
== END 2022-07-30 21:43 | disposition home or self-care (01) ==
LOC: ER 14:21
DX: R10.11 Right upper quadrant pain (principal); I10 Essential (primary) hypertension; E78.00 Pure hypercholesterolemia, unspecified; J45.909 Unspecified asthma, uncomplicated; E11.9 Type 2 diabetes mellitus without complications; Z88.0 Allergy status to penicillin; Z88.1 Allergy status to other antibiotic agents; Z88.2 Allergy status to sulfonamides; Z90.710 Acquired absence of both cervix and uterus
CPT/HCPCS: 36415; 74018; 80053; 81001; 81025; 83690; 85025; 96374; 96375; 99284; C9113; J0780; J2270

== ENCOUNTER 2022-09-09 11:27 | Emergency (ER) | payer MEDICAID ==
[~2022-09-09] VITALS: Ht 167.6 cm; Wt 89.4 kg
[~2022-09-09 11:27] MED LIST changes: +PANT-47 PO; +PROC-8 PO
[2022-09-09 11:38] VITALS: BP 137/86
[2022-09-09 12:10] LABS: CLARITY,URINE CLEAR (Clear); COLOR,URINE YELLOW (Yellow); GLUCOSE, URINE NEGATIVE (Neg); KETONES,URINE NEGATIVE (Neg); LEUKOCYTE ESTERASE ,URINE NEGATIVE (Neg); NITRITES, URINE NEGATIVE (Neg); OCCULT BLOOD,URINE TRACE-INTACT (Neg); PH,URINE 5.5 (4.8-8.0); PROTEIN,URINE NEGATIVE (Neg); UROBILINOGEN,URINE 0.2 E.U/dL (0.2-1.0)
[2022-09-09 12:11] LABS: UA COLLECTION TYPE CLN CATCH MIDSTREAM; URINE HCG NEGATIVE (NEG)
[2022-09-09 12:16] LABS: BASOPHILS # (AUTO) 0.1 X10'3 (0-0.2); BASOPHILS % (AUTO) 0.9 % (0-1); EOSINOPHILS # (AUTO) 0.1 X10'3 (0-0.9); EOSINOPHILS % (AUTO) 0.7 % (0-6); HEMATOCRIT 41.8 % (35.0-45.0); HEMOGLOBIN 13.6 g/dl (12.0-16.0); LYMPHOCYTES # (AUTO) 2.1 X10'3 (1.1-4.8); LYMPHOCYTES % (AUTO) 26.4 % (21-51); MEAN CORPUSCULAR HGB CONC 32.6 g/dL (33.0-36.5); MEAN PLATELET VOLUME 9.1 FL (7.4-10.4); MONOCYTES # (AUTO) 0.5 X10'3 (0-0.9); MONOCYTES % (AUTO) 6.1 % (2-12); NEUTROPHILS # (AUTO) 5.2 X10'3 (1.8-7.7); NEUTROPHILS % (AUTO) 65.9 % (42-75); PLATELET COUNT 291 X10'3 (140-440); RED CELL DISTRIBUTION WIDTH 13.6 % (11.5-14.5); WHITE BLOOD COUNT 7.8 X10'3 (4.5-11.0)
[2022-09-09 12:21] LABS: ALANINE AMINOTRANSFERASE 19 U/L (12-78); ALBUMIN 3.8 G/DL (3.4-5.0); ALBUMIN/GLOBULIN RATIO 1.2 (1.1-1.5); ALKALINE PHOSPHATASE 79 IU/L (46-116); ANION GAP 12 (8-16); ASPARTATE AMINO TRANSFERASE 13 U/L (10-37); BILIRUBIN,TOTAL 0.3 MG/DL (0.1-1.0); BLOOD UREA NITROGEN 15 MG/DL (7-18); BUN/CREATININE RATIO 15.3 (10.0-20.0); CALCIUM 8.9 MG/DL (8.5-10.1); CHLORIDE 106 MMOL/L (99-107); CREATININE 0.98 MG/DL (0.40-0.90); GLUCOSE 119 MG/DL (70-104); LIPASE 54 U/L (73-393); POTASSIUM 4.1 MMOL/L (3.5-5.1); SODIUM 144 MMOL/L (135-145); TOTAL PROTEIN 6.9 G/DL (6.4-8.2); eGFR 58 ML/MIN
[2022-09-09 12:22] LABS: SQUAMOUS EPITHELIAL CELL,UR MODERATE /LPF (FEW)
[2022-09-09 12:23] LABS: MUCUS STRANDS FEW /LPF (Neg)
[2022-09-09 12:24] LABS: BACTERIA,URINE FEW /HPF (Neg); RBC,URINE 0-2 /HPF (0-2); WBC,URINE 0-4 /HPF (0-4)
== END 2022-09-09 16:17 | disposition home or self-care (01) ==
LOC: ER 11:27
DX: R10.31 Right lower quadrant pain (principal); I11.0 Hypertensive heart disease with heart failure; J45.909 Unspecified asthma, uncomplicated; G89.29 Other chronic pain; M54.9 Dorsalgia, unspecified; Z88.0 Allergy status to penicillin; Z88.1 Allergy status to other antibiotic agents; Z79.899 Other long term (current) drug therapy; Z88.8 Allergy status to other drugs, medicaments and biological substances
CPT/HCPCS: 36415; 76705; 80053; 81001; 81025; 83690; 85025; 99284

== ENCOUNTER 2024-11-20 12:07 | Emergency (ER) | payer MEDICAID ==
[~2024-11-20] VITALS: Ht 165.1 cm; Wt 102.0 kg
[2024-11-20 12:23] VITALS: BP 174/92; PULSE 95; RESP 17; O2SAT 98
[2024-11-20] MEDS ORDERED: normal saline 1000ML IV soln IVB ONE (14:35)
[2024-11-20] MEDS ORDERED: acetaminophen 1,000mg/100ml IV 100 ML IV ONE (14:35)
--- NOTE | 2024-11-20 15:44 | Physician Documentation ---
History of Present Illness ~ Chief Complaint: Headache Stated Complaint: HEADACHE Time Seen by MD: 13:58 Primary Medical Doctor: Yolette Santillan HPI 59-year-old female who presents to the emergency department with a request of primary care office for evaluation and headache. Her headache is primarily centered behind both eyes greater on the right than left. There was associated mild nausea. Patient has a known history of migraines. This headache is not thunderclap. She was seen approximately 10 days ago at [facility] for dizziness and headache associated with high blood pressure. Noted to have an aneurysm at that time that he is medically managed. She is pending referral to Neurology. She is has been taking her lisinopril 20 mg and her statin as directed. No reported chest pain and shortness of breath. No ataxia. Medication Reconciliation Allergies: Coded Allergies: Penicillins (Verified Allergy, Unknown, 09/09/22) amoxicillin (Unverified Allergy, Unknown, 09/09/22) metoclopramide HCl (Verified Allergy, Unknown, 09/09/22) ondansetron HCl (Verified Allergy, Unknown, 09/09/22) Scheduled Dorzolamide HCl (Dorzolamide HCl), 1 DROP RIGHTEYE Q12H, (Reported) Lamotrigine (Lamotrigine), 1 TAB PO Q12H, (Reported) Lisinopril (Lisinopril), 1 TAB PO DAILY, (Reported) Netarsudil Mesylat/Latanoprost (Rocklatan 0.02%-0.005% Eye Drp), 11 DROP EACHEYE HS, (Reported) Pantoprazole Sodium (PROTONIX tablet), 1 TAB PO DAILY Simvastatin (Zocor), 1 TAB PO HS, (Reported) Timolol (Betimol), 1 DROP LEFTEYE Q12H, (Reported) Trazodone HCl (Trazodone HCl), 3 TAB PO HS, (Reported) Scheduled PRN Omeprazole (Omeprazole), 1 CAP PO DAILY PRN for GASTRIC REFLUX, (Reported) Prochlorperazine Maleate (Compazine), 1 TAB PO QID PRN PRN for nausea/vomiting Promethazine HCl (Promethazine HCl), 1 TAB PO Q6H PRN for nausea/vomiting, (Reported) Past Medical History Past Medical History: CVA/TIA/Stroke, Seizures, Glaucoma, *CARDIOVASCULAR*, Atrial Fibrillation, High Cholesterol, Hypertension, Asthma, Bowel Obstruction, Diverticulitis, Gastritis, Pancreatitis, Diabetes, Chronic Pain, Chronic Back Pain, Deep Vein Thrombosis, Fibromyalgia Past Surgical History: hysterectomy, other Patient History: (Cancer) Malignant carcinoid tumor MOTHER ( AT 41 FROM COLON CANCER) Other Past Family History: NONCONTRIBUTORY Alcohol Use: Rarely Drug Use: none Lives with: Spouse Lives In: Home Occupation: employed Review of Systems All Other Systems at this time: Reviewed and Negative Constitutional: Denies: chills, fever Neurological: Reports: headache; Denies: dizziness Physical Exam Vital Signs: Temperature: 98.3, Source: Oral, Heart Rate: 95, Respiratory Rate: 17, BP: 174/92, Pulse Oximetry: 98, Weight: 102.000 General Appearance: alert, WD/WN, mild distress ENT: normal ENT inspection, PERRL/EOMI, TMs normal Nose: normal inspection Neck: non-tender, full range of motion Respiratory: lungs clear Chest: no accessory muscle use Cardiovascular: normal peripheral pulses, regular rate, rhythm Gastrointestinal: non-tender Skin: warm/dry Neurologic: oriented x4, utilization management rn II-XII nml as tested, memory intact Psychiatric: normal mood/affect Progress Results/Orders Results/Orders Completed Orders - HUMA ELAM Acetaminophen 1,000mg/100ml Iv (Ofirmev (11/20/24 14:35) Normal Saline 1000ml (0.9% Sodium Chlori (11/20/24 14:35) Diphenhydramine Inj (Benadryl Inj.) (11/20/24 14:35) Acetaminophen 325mg Tablet (Tylenol Tabl (11/20/24 15:25) Diphenhydramine Capsule (Benadryl Capsul (11/20/24 15:25) Medications Received in ER Medications (Trade) Dose Ordered Sig/Lei Route PRN Reason Start Time Stop Time Status Last Admin Dose Admin (Tylenol tablet) 975 mg ONCE ONCE PO 11/20/24 15:25 11/20/24 15:31 DC 11/20/24 15:39 975 MG (Benadryl capsule) 50 mg ONCE ONCE PO 11/20/24 15:25 11/20/24 15:31 DC 11/20/24 15:39 50 MG Vital Signs 11/20/24 12:23 Temp 98.3 Pulse 95 Resp 17 B/P (MAP) 174/92 Pulse Ox 98 Medical Decision Making Differential Dx:Considerations: Include: Fever induced, Hemorrhage-Epidural, Hemorrhage-Intracerebral, Hemorrhage-Subarachnoid, Hemorrhage-Subdural, Pseudotumor cerebri, Temporal arteritis, Trigeminal neuralgia Additional Comment 59-year-old female presents with headache requiring management without consideration for intracranial mass or bleed or in aneurysm of the sequelae. Patient to receive IV hydration, IV Tylenol and Benadryl. She is unable to tolerate Reglan and/or Zofran. She has been reassessed in the emergency department prior to medication administration reports that she is feeling better just with cool, calm and dark room. There was difficulty establishing an IV so she received medications orally. She awaits reassessment. She remains while alert and oriented grossly neurologically intact without focal neuro deficits. Departure Disposition: HOME / SELF CARE / HOMELESS Impression: Primary Impression: Headache Qualified Codes: R51.9 - Headache, unspecified Discharge Instructions: Headache Additional Instructions: Today in the emergency department you received oral Tylenol and Benadryl for headache management. Please continue to take Tylenol and Benadryl as needed every 6-8 hours for headache and stay well hydrated. Keep your scheduled follow up appointment with the neurologist and return to the emergency department as needed. Thank you for visiting emergency department [facility]. Referrals: NO PRIMARY CARE PROVIDER (PCP) Education Educated: Patient Educated regarding: diagnosis, treatment Signature Scribe Signature: . Attestation: . HUMA ELAM PAC Nov 20, 2024 15:44
[2024-11-20 17:27] VITALS: TEMP 98.3
== END 2024-11-20 17:29 | disposition home or self-care (01) ==
LOC: ER 12:07
DX: R51.9 Headache, unspecified (principal); R11.0 Nausea; E11.9 Type 2 diabetes mellitus without complications; E78.00 Pure hypercholesterolemia, unspecified; I10 Essential (primary) hypertension; I48.91 Unspecified atrial fibrillation; J45.909 Unspecified asthma, uncomplicated; M79.7 Fibromyalgia; Z86.73 Personal history of transient ischemic attack (TIA), and cerebral infarction without residual deficits; Z88.0 Allergy status to penicillin; Z88.8 Allergy status to other drugs, medicaments and biological substances; Z90.710 Acquired absence of both cervix and uterus
CPT/HCPCS: 99283; Q0163

== ENCOUNTER 2024-11-30 11:01 | Outpatient (CLI) | payer MEDICAID ==
[2024-11-30 12:01] LABS: CREATININE 0.93 MG/DL (0.40-0.90); TOTAL CARBON DIOXIDE 26.6 MMOL/L (24-32); eGFR 61 ML/MIN
== END 2024-11-30 23:59 | disposition home or self-care (01) ==
LOC: RAD 11:01
PROVIDERS: ATTEND Nurse Practitioner Family
DX: I72.9 Aneurysm of unspecified site (principal)
CPT/HCPCS: 36415; 80048